=== PATIENT | male | born 1950 | race Caucasian/White ===

== ENCOUNTER 2017-04-23 19:42 | Inpatient (IN) | payer MEDICARE, BC ==
[~2017-04-23] VITALS: Ht 182.9 cm; Wt 62.7 kg
[2017-04-23] VITALS (65 sets, daily range): BP systolic 131; BP diastolic 55; PULSE 93; TEMP 97.8; O2SAT 82–100
[~2017-04-23 19:42] MED LIST: ASPIRIN 81M81 MG/TA2 PO; CASODEX 50MG TA50 MG PO; LUPRON5 MG/M2 IM; NORCO 325 MG-7.1 TAB PO; OSCAL 500 TAB500 MG PO; PRILOTC PO; VITAMIN D31000 I1 PO
[2017-04-23] MEDS ORDERED: ZOFRAN8 MG PO (20:38)
[2017-04-23 21:22] LABS: CALCIUM 6.7 mg/dL (8.4-10.2); MAGNESIUM 2.2 mg/dL (1.6-2.3); PHOSPHOROUS 7.4 mg/dL (2.5-4.5); POTASSIUM 4.9 mmol/L (3.4-5.0)
[2017-04-23 21:24] LABS: CREATININE, serum 6.59 mg/dL (0.66-1.25)
[2017-04-23 21:39] LABS: HEMATOCRIT 47.6 % (42.0-52.0); HEMOGLOBIN 15.5 g/dl (13.5-18.0); MEAN CELL VOLUME 83 fl (80.0-100.0); MEAN CORPUSCULAR HEMOGLOBIN 27 pg (27.0-31.0); MEAN CORPUSCULAR HGB CONC 33 g/dl (33.0-37.0); PLATELET COUNT 382 K/mm3 (130-400); RED BLOOD COUNT 5.74 M/mm3 (4.20-5.60); REDCELL DISTRIBUTION WIDTH-CV 15.3 % (11.5-14.5); WHITE BLOOD COUNT 7.5 K/mm3 (4.8-10.8)
[2017-04-23 21:47] LABS: ADD PATHOLOGY DIFF REVIEW NO
[2017-04-23 21:58] LABS: BAND 76 % (0-10); NEUTROPHILS 2 % (42.0-75.2); PLATELET ESTIMATE NORMAL (NORMAL); TOTAL CELLS COUNTED 100
[2017-04-24] VITALS (1028 sets, daily range): BP systolic 124–163; BP diastolic 75–100; PULSE 86–112; TEMP 97.6–98.8; O2SAT 48–100
[2017-04-24 02:05] LABS: PH 5 (5-8); URINE APPEARANCE Cloudy; URINE BACTERIA Rare /hpf; URINE BILIRUBIN Negative (NEGATIVE); URINE BLOOD 1+ (NEGATIVE); URINE COLOR Yellow; URINE GLUCOSE 1+ (NEGATIVE); URINE KETONE Negative (NEGATIVE); URINE UROBILINOGEN Negative (NEGATIVE); URINE WBC >50 /hpf
[2017-04-24 02:16] LABS: POTASSIUM 4.9 mmol/L (3.4-5.0)
[2017-04-24 02:20] LABS: CREATININE, serum 5.01 mg/dL (0.66-1.25)
[2017-04-24 02:21] LABS: CALCIUM 5.7 mg/dL (8.4-10.2)
[2017-04-24 05:28] LABS: HEMATOCRIT 43.7 % (42.0-52.0); HEMOGLOBIN 14.2 g/dl (13.5-18.0); MEAN CELL VOLUME 84 fl (80.0-100.0); MEAN CORPUSCULAR HEMOGLOBIN 27 pg (27.0-31.0); MEAN CORPUSCULAR HGB CONC 33 g/dl (33.0-37.0); MEAN PLATELET VOLUME 9.9 fl (7.4-10.4); PLATELET COUNT 328 K/mm3 (130-400); RED BLOOD COUNT 5.23 M/mm3 (4.20-5.60); REDCELL DISTRIBUTION WIDTH-CV 15.2 % (11.5-14.5); WHITE BLOOD COUNT 6.1 K/mm3 (4.8-10.8)
[2017-04-24 05:39] LABS: PHOSPHOROUS 5.4 mg/dL (2.5-4.5); POTASSIUM 4.5 mmol/L (3.4-5.0)
[2017-04-24 05:43] LABS: CALCIUM 5.8 mg/dL (8.4-10.2); CREATININE, serum 4.42 mg/dL (0.66-1.25)
[2017-04-24 11:17] LABS: ALBUMIN 3.5 gm/dL (3.5-5.0); BILIRUBIN,TOTAL 0.4 mg/dL (0.0-1.0); PHOSPHOROUS 5.9 mg/dL (2.5-4.5); TOTAL PROTEIN 7.2 gm/dL (6.4-8.2)
[2017-04-24 11:24] LABS: CALCIUM 5.6 mg/dL (8.4-10.2); CREATININE, serum 4.88 mg/dL (0.66-1.25)
[2017-04-25] VITALS (655 sets, daily range): BP systolic 101–146; BP diastolic 65–89; PULSE 85–91; TEMP 97.1–98.6; O2SAT 71–100
[2017-04-25 05:53] LABS: ADD PATHOLOGY DIFF REVIEW NO
[2017-04-25 05:59] LABS: HEMOGLOBIN 12.9 g/dl (13.5-18.0); MEAN CELL VOLUME 83 fl (80.0-100.0); MEAN CORPUSCULAR HEMOGLOBIN 27 pg (27.0-31.0); MEAN CORPUSCULAR HGB CONC 33 g/dl (33.0-37.0); MEAN PLATELET VOLUME 9.9 fl (7.4-10.4); PLATELET COUNT 307 K/mm3 (130-400); RED BLOOD COUNT 4.73 M/mm3 (4.20-5.60); REDCELL DISTRIBUTION WIDTH-CV 15.1 % (11.5-14.5); WHITE BLOOD COUNT 5.3 K/mm3 (4.8-10.8)
[2017-04-25 06:13] LABS: ADJUSTED CALCIUM 7.6 mg/dL (8.4-10.2); ALBUMIN 3.4 gm/dL (3.5-5.0); BAND 39 % (0-10); BASOPHIL 1 % (0-2); BILIRUBIN,TOTAL 0.4 mg/dL (0.0-1.0); CALCIUM 7.1 mg/dL (8.4-10.2); CREATININE, serum 1.47 mg/dL (0.66-1.25); EOSINOPHIL 3 % (0-4); MAGNESIUM 2.2 mg/dL (1.6-2.3); METAMYELOCYTE 1 % (0-0); MYELOCYTE 1 % (0-0); NEUTROPHILS 37 % (42.0-75.2); PHOSPHOROUS 2.7 mg/dL (2.5-4.5); PLATELET ESTIMATE NORMAL (NORMAL); POTASSIUM 3.4 mmol/L (3.4-5.0); TOTAL CELLS COUNTED 100
[2017-04-25 07:36] LABS: URINE PROTEIN:CREAT RATIO 0.79 (0.00-0.14)
[2017-04-25] MEDS ORDERED: ADVIL LIQUI-GE200 MG PO (16:40)
[2017-04-26] VITALS (7 sets, daily range): BP systolic 110–140; BP diastolic 56–77; PULSE 86–103; TEMP 97.7–98.2
[2017-04-26 07:17] LABS: ADD PATHOLOGY DIFF REVIEW NO
[2017-04-26 07:24] LABS: HEMATOCRIT 40.4 % (42.0-52.0); MEAN CELL VOLUME 83 fl (80.0-100.0); MEAN CORPUSCULAR HEMOGLOBIN 27 pg (27.0-31.0); MEAN CORPUSCULAR HGB CONC 32 g/dl (33.0-37.0); MEAN PLATELET VOLUME 10.1 fl (7.4-10.4); PLATELET COUNT 329 K/mm3 (130-400); RED BLOOD COUNT 4.88 M/mm3 (4.20-5.60); REDCELL DISTRIBUTION WIDTH-CV 15.3 % (11.5-14.5); WHITE BLOOD COUNT 5.6 K/mm3 (4.8-10.8)
[2017-04-26 07:34] LABS: ALBUMIN 3.3 gm/dL (3.5-5.0); CALCIUM 7.3 mg/dL (8.4-10.2); CREATININE, serum 0.95 mg/dL (0.66-1.25); PHOSPHOROUS 1.5 mg/dL (2.5-4.5); POTASSIUM 3.4 mmol/L (3.4-5.0)
[2017-04-26 08:53] LABS: BAND 33 % (0-10); METAMYELOCYTE 1 % (0-0); MYELOCYTE 5 % (0-0); NEUTROPHILS 27 % (42.0-75.2); PLATELET ESTIMATE INCREASED (NORMAL); TOTAL CELLS COUNTED 100
[2017-04-27 04:05] VITALS: BP 128/91; PULSE 88; TEMP 97.5
[2017-04-27 06:36] LABS: CALCIUM 7.9 mg/dL (8.4-10.2); CREATININE, serum 0.73 mg/dL (0.66-1.25); PHOSPHOROUS 1.8 mg/dL (2.5-4.5); POTASSIUM 4.1 mmol/L (3.4-5.0)
[2017-04-27 07:47] VITALS: BP 116/69; PULSE 88; TEMP 97.6
[2017-04-27 11:24] VITALS: BP 114/63; PULSE 107; TEMP 97.9
[2017-04-27 16:11] VITALS: BP 123/66; PULSE 90; TEMP 98.2
[2017-04-27 20:52] VITALS: BP 130/63; PULSE 106; TEMP 97.8
[2017-04-28] VITALS (7 sets, daily range): BP systolic 108–131; BP diastolic 62–78; PULSE 84–106; TEMP 98–98.8
[2017-04-28 07:40] LABS: MEAN CELL VOLUME 84 fl (80.0-100.0); MEAN CORPUSCULAR HEMOGLOBIN 27 pg (27.0-31.0); MEAN CORPUSCULAR HGB CONC 32 g/dl (33.0-37.0); MEAN PLATELET VOLUME 9.9 fl (7.4-10.4); PLATELET COUNT 358 K/mm3 (130-400); RED BLOOD COUNT 4.42 M/mm3 (4.20-5.60); REDCELL DISTRIBUTION WIDTH-CV 15.9 % (11.5-14.5); WHITE BLOOD COUNT 11.7 K/mm3 (4.8-10.8)
[2017-04-28 07:58] LABS: ADJUSTED CALCIUM 8.8 mg/dL (8.4-10.2); ALBUMIN 2.8 gm/dL (3.5-5.0); BILIRUBIN,TOTAL 0.3 mg/dL (0.0-1.0); CALCIUM 7.8 mg/dL (8.4-10.2); CREATININE, serum 0.68 mg/dL (0.66-1.25); POTASSIUM 3.5 mmol/L (3.4-5.0); TOTAL PROTEIN 6.1 gm/dL (6.4-8.2)
[2017-04-28 08:04] LABS: BAND 35 % (0-10); EOSINOPHIL 1 % (0-4); METAMYELOCYTE 2 % (0-0); MYELOCYTE 4 % (0-0); NEUTROPHILS 34 % (42.0-75.2); TOTAL CELLS COUNTED 100
[2017-04-28 08:05] LABS: PLATELET ESTIMATE NORMAL (NORMAL)
[2017-04-28 08:08] LABS: ADD PATHOLOGY DIFF REVIEW YES; POLYCHROMASIA 1+; TARGET CELLS 1+
[2017-04-28 09:09] LABS: PATHOLOGY DIFF REVIEW OK
[2017-04-29 04:30] VITALS: BP 125/68; PULSE 98; TEMP 98.2
[2017-04-29 07:00] LABS: MEAN CELL VOLUME 83 fl (80.0-100.0); MEAN CORPUSCULAR HGB CONC 32 g/dl (33.0-37.0); MEAN PLATELET VOLUME 10.1 fl (7.4-10.4); PLATELET COUNT 370 K/mm3 (130-400); RED BLOOD COUNT 4.14 M/mm3 (4.20-5.60); REDCELL DISTRIBUTION WIDTH-CV 16.2 % (11.5-14.5); WHITE BLOOD COUNT 14.5 K/mm3 (4.8-10.8)
[2017-04-29 07:01] LABS: ADD PATHOLOGY DIFF REVIEW NO; HEMATOCRIT 34.4 % (42.0-52.0); HEMOGLOBIN 11.1 g/dl (13.5-18.0); MEAN CORPUSCULAR HEMOGLOBIN 27 pg (27.0-31.0)
[2017-04-29 07:16] LABS: CALCIUM 7.3 mg/dL (8.4-10.2); CREATININE, serum 0.62 mg/dL (0.66-1.25); POTASSIUM 3.8 mmol/L (3.4-5.0)
[2017-04-29 07:36] VITALS: BP 127/65; PULSE 117; TEMP 98.4
[2017-04-29 08:15] LABS: BAND 13 % (0-10); EOSINOPHIL 1 % (0-4); METAMYELOCYTE 2 % (0-0); NEUTROPHILS 57 % (42.0-75.2); TOTAL CELLS COUNTED 100; TOXIC GRANULATION PRESENT
[2017-04-29 08:18] LABS: ANISOCYTOSIS 1+; TARGET CELLS 1+
[2017-04-29] MEDS ORDERED: ROCEPHIN 2GM VIAL21 IV (11:25)
[2017-04-29] MEDS ORDERED: FLAGYL500 MG PO (11:27)
[2017-04-29 11:51] VITALS: BP 125/64; PULSE 94; TEMP 98
[2017-04-29] MEDS ORDERED: HEPARIN 50500 U/5 ML IV (12:03)
[2017-04-29] MEDS ORDERED: NS INT FLUSH 1010 ML IV (12:06)
[2017-05-22] MEDS ORDERED: CORTEF 20MG TAB20 MG PO (10:53)
== END 2017-04-29 18:40 | disposition home or self-care (01) | DRG 871 ==
LOC: COL.ER 19:42 → ICU 21:33 → MEDICAL 21:33 → ICU 21:33 → MEDICAL 04-25 15:10
PROVIDERS: Emergency Medicine; Internal Medicine; Internal Medicine Cardiovascular Disease; Internal Medicine Nephrology; Nurse Practitioner Family
PROC: 02HV33Z Insertion of Infusion Device into Superior Vena Cava, Percutaneous Approach (ICD-10-PCS; principal; 2017-04-28)
DX: A02.1 Salmonella sepsis (principal); E43 Unspecified severe protein-calorie malnutrition; A04.7 Enterocolitis due to Clostridium difficile; N17.9 Acute kidney failure, unspecified; E87.2 Acidosis; Z68.1 Body mass index [BMI] 19.9 or less, adult; C79.51 Secondary malignant neoplasm of bone; E87.1 Hypo-osmolality and hyponatremia; A02.0 Salmonella enteritis; C61 Malignant neoplasm of prostate; Z85.01 Personal history of malignant neoplasm of esophagus; Z87.891 Personal history of nicotine dependence; E83.51 Hypocalcemia
CPT/HCPCS: 99223-AI; 99233-AI; 99239; C1751; C9113; G0378; J0610; J0696; J1170; J1644; J1650; J2405; J2543; J2765; J7030; J7050

== ENCOUNTER 2017-05-27 09:00 | Outpatient (RCR) | payer MEDICARE, BC ==
[2017-04-30 09:46] VITALS: BP 112/60; PULSE 98; TEMP 98.1
[2017-05-01 09:21] VITALS: BP 113/58; PULSE 99; TEMP 98.2
[2017-05-01 09:29] LABS: MEAN CELL VOLUME 82 fl (80.0-100.0); MEAN CORPUSCULAR HGB CONC 33 g/dl (33.0-37.0); MEAN PLATELET VOLUME 9.8 fl (7.4-10.4); PLATELET COUNT 398 K/mm3 (130-400); RED BLOOD COUNT 4.05 M/mm3 (4.20-5.60); REDCELL DISTRIBUTION WIDTH-CV 16.3 % (11.5-14.5); WHITE BLOOD COUNT 14.1 K/mm3 (4.8-10.8)
[2017-05-01 09:30] LABS: HEMATOCRIT 33.2 % (42.0-52.0); MEAN CORPUSCULAR HEMOGLOBIN 27 pg (27.0-31.0)
[2017-05-01 09:41] LABS: ADJUSTED CALCIUM 8.4 mg/dL (8.4-10.2); ALBUMIN 2.9 gm/dL (3.5-5.0); BILIRUBIN,TOTAL 0.4 mg/dL (0.0-1.0); CALCIUM 7.5 mg/dL (8.4-10.2); CREATININE, serum 0.57 mg/dL (0.66-1.25); POTASSIUM 3.8 mmol/L (3.4-5.0); TOTAL PROTEIN 6.2 gm/dL (6.4-8.2)
[2017-05-02 09:13] VITALS: BP 116/66; PULSE 96; TEMP 97.6
[2017-05-03 08:44] VITALS: BP 125/70; PULSE 91; TEMP 98.3
[2017-05-04 08:24] VITALS: BP 115/67; PULSE 96; TEMP 98.1
[2017-05-06 09:26] VITALS: BP 104/61; PULSE 96; TEMP 98.4
[2017-05-07 09:00] VITALS: BP 110/70; PULSE 80; TEMP 98
[2017-05-08 09:16] LABS: MEAN CELL VOLUME 84 fl (80.0-100.0); MEAN CORPUSCULAR HGB CONC 33 g/dl (33.0-37.0); MEAN PLATELET VOLUME 9.3 fl (7.4-10.4); PLATELET COUNT 623 K/mm3 (130-400); RED BLOOD COUNT 4.06 M/mm3 (4.20-5.60); REDCELL DISTRIBUTION WIDTH-CV 16.6 % (11.5-14.5); WHITE BLOOD COUNT 6.9 K/mm3 (4.8-10.8)
[2017-05-08 09:18] LABS: HEMATOCRIT 34.2 % (42.0-52.0); HEMOGLOBIN 11.1 g/dl (13.5-18.0); MEAN CORPUSCULAR HEMOGLOBIN 27 pg (27.0-31.0)
[2017-05-08 09:33] LABS: ADJUSTED CALCIUM 8.5 mg/dL (8.4-10.2); ALBUMIN 3.2 gm/dL (3.5-5.0); BILIRUBIN,TOTAL 0.4 mg/dL (0.0-1.0); CALCIUM 7.9 mg/dL (8.4-10.2); CREATININE, serum 0.61 mg/dL (0.66-1.25); POTASSIUM 4.2 mmol/L (3.4-5.0); TOTAL PROTEIN 6.9 gm/dL (6.4-8.2)
[2017-05-08 09:48] VITALS: BP 119/71; PULSE 87; TEMP 98.4
[2017-05-09 09:28] VITALS: BP 114/60; PULSE 93; TEMP 97.8
[2017-05-10 08:24] VITALS: BP 102/55; BP 111/62; PULSE 71; PULSE 95; TEMP 97.9; TEMP 98
[2017-05-11 08:14] VITALS: BP 131/69; PULSE 89; TEMP 97.8
[2017-05-12 07:59] VITALS: BP 125/65; PULSE 93; TEMP 97.4
[2017-05-13 09:11] VITALS: BP 116/67; PULSE 88; TEMP 98.1
[2017-05-14 08:57] VITALS: BP 127/65; PULSE 87; TEMP 98.1
[2017-05-15 09:30] VITALS: BP 121/53; PULSE 94; TEMP 98.4
[2017-05-15 09:33] LABS: MEAN CELL VOLUME 84 fl (80.0-100.0); MEAN CORPUSCULAR HGB CONC 32 g/dl (33.0-37.0); MEAN PLATELET VOLUME 9.1 fl (7.4-10.4); PLATELET COUNT 584 K/mm3 (130-400); REDCELL DISTRIBUTION WIDTH-CV 16.6 % (11.5-14.5); WHITE BLOOD COUNT 6.3 K/mm3 (4.8-10.8)
[2017-05-15 09:34] LABS: HEMATOCRIT 34.5 % (42.0-52.0); MEAN CORPUSCULAR HEMOGLOBIN 27 pg (27.0-31.0)
[2017-05-15 09:55] LABS: ADJUSTED CALCIUM 8.5 mg/dL (8.4-10.2); ALBUMIN 3.4 gm/dL (3.5-5.0); BILIRUBIN,TOTAL 0.5 mg/dL (0.0-1.0); CREATININE, serum 0.63 mg/dL (0.66-1.25); POTASSIUM 4.5 mmol/L (3.4-5.0); TOTAL PROTEIN 7.1 gm/dL (6.4-8.2)
[2017-05-16 09:39] VITALS: BP 128/79; PULSE 84; TEMP 97.9
[2017-05-17 08:32] VITALS: BP 132/63; PULSE 65; TEMP 98.5
[2017-05-18 08:18] VITALS: BP 135/72; PULSE 103; TEMP 97.9
[2017-05-19 09:31] VITALS: BP 129/66; PULSE 94; TEMP 98.1
[2017-05-20 09:00] VITALS: BP 111/63; PULSE 100; TEMP 97.8
[2017-05-21 09:00] VITALS: BP 131/66; PULSE 94; TEMP 98.1
[2017-05-22 09:16] VITALS: BP 119/65; PULSE 101; TEMP 98
[2017-05-22 10:00] LABS: MEAN CELL VOLUME 85 fl (80.0-100.0); MEAN CORPUSCULAR HGB CONC 32 g/dl (33.0-37.0); MEAN PLATELET VOLUME 9.3 fl (7.4-10.4); PLATELET COUNT 387 K/mm3 (130-400); RED BLOOD COUNT 4.16 M/mm3 (4.20-5.60); REDCELL DISTRIBUTION WIDTH-CV 16.6 % (11.5-14.5); WHITE BLOOD COUNT 6.7 K/mm3 (4.8-10.8)
[2017-05-22 10:05] LABS: HEMATOCRIT 35.5 % (42.0-52.0); HEMOGLOBIN 11.4 g/dl (13.5-18.0); MEAN CORPUSCULAR HEMOGLOBIN 27 pg (27.0-31.0)
[2017-05-22 10:18] LABS: ADJUSTED CALCIUM 8.2 mg/dL (8.4-10.2); ALBUMIN 3.4 gm/dL (3.5-5.0); BILIRUBIN,TOTAL 0.4 mg/dL (0.0-1.0); CALCIUM 7.7 mg/dL (8.4-10.2); CREATININE, serum 0.59 mg/dL (0.66-1.25); POTASSIUM 4.2 mmol/L (3.4-5.0); TOTAL PROTEIN 7.2 gm/dL (6.4-8.2)
[2017-05-23 09:17] VITALS: BP 116/67; PULSE 93; TEMP 98.4
[2017-05-24 08:36] VITALS: BP 127/67; PULSE 98; TEMP 97.5
[2017-05-25 08:36] VITALS: BP 126/69; PULSE 95; TEMP 98
[2017-05-26 08:53] VITALS: BP 108/56; PULSE 105; TEMP 97.9
[~2017-05-27] VITALS: Ht 182.9 cm; Wt 71.0 kg
[~2017-05-27 09:00] MED LIST changes: +ADVIL LIQUI-GE200 MG PO; +CORTEF 20MG TAB20 MG PO; +FLAGYL500 MG PO; +HEPARIN 50500 U/5 ML IV; +NS INT FLUSH 1010 ML IV; +ROCEPHIN 2GM VIAL21 IV; +ZOFRAN8 MG PO
[2017-05-27 09:10] VITALS: BP 125/69; PULSE 98; TEMP 98.3
== END 2017-05-28 12:27 | disposition home or self-care (01) ==
LOC: EUO 09:00
PROVIDERS: Family Medicine; Internal Medicine
DX: Z45.2 Encounter for adjustment and management of vascular access device (principal); R78.81 Bacteremia; A02.1 Salmonella sepsis; C61 Malignant neoplasm of prostate
CPT/HCPCS: G0103; J0696; J1644

== ENCOUNTER → 2018-01-19 | Outpatient (CLI) | payer MEDICARE, BC | LOC: COL.RAD 01-12 09:49 | DX: C61 Malignant neoplasm of prostate (principal); C79.51 Secondary malignant neoplasm of bone; N28.89 Other specified disorders of kidney and ureter | CPT/HCPCS: A9503 ==

== ENCOUNTER 2018-04-09 16:54 | Inpatient (IN) | payer MEDICARE, BC ==
[~2018-04-09] VITALS: Ht 182.9 cm; Wt 72.4 kg
[2018-04-09] MEDS ORDERED: LASIX 20MG TABL20 MG PO (17:17)
[2018-04-09] MEDS ORDERED: DECADRON 4MG TAB4 MG PO (17:18)
[2018-04-09] MEDS ORDERED: PREDNISONE20 MG PO (17:18)
[2018-04-09] MEDS ORDERED: GLUCOSAMINE 1000 PO (17:19)
[2018-04-09 18:14] LABS: MEAN CELL VOLUME 110 fl (80.0-100.0); MEAN CORPUSCULAR HGB CONC 30 g/dl (33.0-37.0); MEAN PLATELET VOLUME 11.7 fl (7.4-10.4); PLATELET COUNT 65 K/mm3 (130-400); RED BLOOD COUNT 2.43 M/mm3 (4.20-5.60)
[2018-04-09 18:22] LABS: HEMATOCRIT 26.6 % (42.0-52.0); MEAN CORPUSCULAR HEMOGLOBIN 33 pg (27.0-31.0)
[2018-04-09 18:36] LABS: ARTERIAL BLD GAS O2 SATURATION 97.1 % (92-100); ARTERIAL BLD GAS TCO2 CT 9.7; ARTERIAL BLOOD GAS BASE EXCESS -17.2 (-2-2); ARTERIAL BLOOD GAS pH 7.21 (7.35-7.45)
[2018-04-09 18:37] LABS: ARTERIAL BLOOD GAS PCO2 23.1 mmHg (35-45); ARTERIAL BLOOD GAS PO2 121.3 mmHg (80-100)
[2018-04-09 18:39] LABS: ALBUMIN 3.3 gm/dL (3.5-5.0); BILIRUBIN,TOTAL 3.4 mg/dL (0.0-1.0); CREATININE, serum 2.06 mg/dL (0.66-1.25); MAGNESIUM 2.4 mg/dL (1.6-2.3); PHOSPHOROUS 5.7 mg/dL (2.5-4.5); TOTAL PROTEIN 6.1 gm/dL (6.4-8.2)
[2018-04-09 18:41] LABS: BAND 19 % (0-10); BASOPHIL 1 % (0-2); LYMPHOCYTE 2 % (20.0-51.0); NEUTROPHILS 78 % (42.0-75.2)
[2018-04-09 18:42] LABS: HYPOCHROMIA 1+; PLATELET ESTIMATE NORMAL (NORMAL); POLYCHROMASIA 1+
[2018-04-09 18:46] LABS: POTASSIUM 6.4 mmol/L (3.4-5.0)
[2018-04-09 18:52] LABS: C-REACTIVE PROTEIN 14.8 mg/dL (0.0-0.9); TROPONIN-I 0.161 ng/mL (0.000-0.034)
[2018-04-09 20:23] LABS: PROTHROMBIN TIME 34.5 SECONDS (9.7-12.8)
[2018-04-09 21:45] LABS: ARTERIAL BLD GAS O2 SATURATION 93.5 % (92-100); ARTERIAL BLD GAS TCO2 CT 12.9; ARTERIAL BLOOD GAS BASE EXCESS -13.8 (-2-2); ARTERIAL BLOOD GAS HCO3 12.1 meq/L (22-26); ARTERIAL BLOOD GAS PO2 87.5 mmHg (80-100); ARTERIAL BLOOD GAS pH 7.25 (7.35-7.45)
[2018-04-09 23:06] VITALS: BP 93/61; PULSE 103; TEMP 97
[2018-04-10] VITALS (895 sets, daily range): BP systolic 91–98; BP diastolic 58–68; PULSE 88–97; TEMP 97–98; O2SAT 78–100
[2018-04-10 00:21] LABS: CREATININE, serum 2.11 mg/dL (0.66-1.25)
[2018-04-10 00:24] LABS: CALCIUM 5.7 mg/dL (8.4-10.2); POTASSIUM 6.1 mmol/L (3.4-5.0)
[2018-04-10 00:38] LABS: TROPONIN-I 0.149 ng/mL (0.000-0.034)
[2018-04-10 06:17] LABS: MEAN CORPUSCULAR HGB CONC 31 g/dl (33.0-37.0); PLATELET COUNT 56 K/mm3 (130-400); RED BLOOD COUNT 2.41 M/mm3 (4.20-5.60); REDCELL DISTRIBUTION WIDTH-CV 22.7 % (11.5-14.5)
[2018-04-10 06:21] LABS: HEMATOCRIT 25.3 % (42.0-52.0); HEMOGLOBIN 7.8 g/dl (13.5-18.0); MEAN CORPUSCULAR HEMOGLOBIN 32 pg (27.0-31.0)
[2018-04-10 06:22] LABS: MEAN CELL VOLUME 105 fl (80.0-100.0)
[2018-04-10 06:30] LABS: BILIRUBIN,TOTAL 2.8 mg/dL (0.0-1.0); CREATININE, serum 1.97 mg/dL (0.66-1.25); POTASSIUM 5.5 mmol/L (3.4-5.0); TOTAL PROTEIN 5.8 gm/dL (6.4-8.2)
[2018-04-10 06:42] LABS: CALCIUM 5.2 mg/dL (8.4-10.2)
[2018-04-10 06:43] LABS: BAND 22 % (0-10); LYMPHOCYTE 3 % (20.0-51.0); NEUTROPHILS 71 % (42.0-75.2); PLATELET ESTIMATE DECREASED (NORMAL)
[2018-04-10 06:44] LABS: ANISOCYTOSIS 3+; HYPOCHROMIA 3+; POLYCHROMASIA 1+; TROPONIN-I 0.123 ng/mL (0.000-0.034)
[2018-04-10 06:45] LABS: TEAR DROP CELLS 1+
[2018-04-10 11:06] LABS: ARTERIAL BLD GAS O2 SATURATION 92.4 % (92-100); ARTERIAL BLOOD GAS BASE EXCESS -6.2 (-2-2); ARTERIAL BLOOD GAS HCO3 19.8 meq/L (22-26); ARTERIAL BLOOD GAS PCO2 41.2 mmHg (35-45); ARTERIAL BLOOD GAS PO2 80.4 mmHg (80-100)
[2018-04-10 12:12] LABS: COLLECTION METHOD CLEAN CATCH
[2018-04-10 12:43] LABS: MUCOUS Present /lpf; PH 5 (5-8); SQUAMOUS EPITHELIAL None Seen /hpf; URINE APPEARANCE Cloudy; URINE BACTERIA Rare /hpf; URINE BILIRUBIN Negative (NEGATIVE); URINE BLOOD 2+ (NEGATIVE); URINE COLOR Amber; URINE GLUCOSE Negative (NEGATIVE); URINE KETONE Negative (NEGATIVE); URINE LEUKOCYTE ESTERASE 2+ (NEGATIVE); URINE NITRATE Negative (NEGATIVE); URINE PROTEIN(semi-quant) 2+ (NEGATIVE); URINE RBC >50 /hpf; URINE UROBILINOGEN >=4.0 mg/dL (NEGATIVE); URINE WBC >50 /hpf
[2018-04-11] VITALS (1374 sets, daily range): BP systolic 87–110; BP diastolic 31–76; PULSE 86–99; TEMP 97.7–98.7; O2SAT 76–100
[2018-04-11 01:01] LABS: HEMOGLOBIN 7.1 g/dl (13.5-18.0)
[2018-04-11 01:09] LABS: CREATININE, serum 1.27 mg/dL (0.66-1.25); POTASSIUM 4.5 mmol/L (3.4-5.0)
[2018-04-11 01:23] LABS: TROPONIN-I 0.074 ng/mL (0.000-0.034)
[2018-04-11 05:26] LABS: ARTERIAL BLD GAS O2 SATURATION 93.1 % (92-100); ARTERIAL BLD GAS TCO2 CT 25.5; ARTERIAL BLOOD GAS HCO3 24.2 meq/L (22-26); ARTERIAL BLOOD GAS PCO2 42.2 mmHg (35-45); ARTERIAL BLOOD GAS PO2 75.9 mmHg (80-100); ARTERIAL BLOOD GAS pH 7.38 (7.35-7.45)
[2018-04-11 07:31] LABS: MEAN CELL VOLUME 103 fl (80.0-100.0); MEAN CORPUSCULAR HGB CONC 31 g/dl (33.0-37.0); MEAN PLATELET VOLUME 12.6 fl (7.4-10.4); RED BLOOD COUNT 2.66 M/mm3 (4.20-5.60); REDCELL DISTRIBUTION WIDTH-CV 22.9 % (11.5-14.5)
[2018-04-11 07:32] LABS: HEMATOCRIT 27.3 % (42.0-52.0); HEMOGLOBIN 8.4 g/dl (13.5-18.0); MEAN CORPUSCULAR HEMOGLOBIN 32 pg (27.0-31.0)
[2018-04-11 07:33] LABS: PLATELET COUNT 46 K/mm3 (130-400)
[2018-04-11 07:39] LABS: INR 2.2 (0.8-3.0); PROTHROMBIN TIME 24.5 SECONDS (9.7-12.8)
[2018-04-11 07:43] LABS: ALBUMIN 2.6 gm/dL (3.5-5.0); BILIRUBIN,TOTAL 2.5 mg/dL (0.0-1.0); CALCIUM 6.2 mg/dL (8.4-10.2); CREATININE, serum 1.12 mg/dL (0.66-1.25); POTASSIUM 4.6 mmol/L (3.4-5.0); TOTAL PROTEIN 5.3 gm/dL (6.4-8.2)
[2018-04-11 09:18] LABS: ANISOCYTOSIS 4+; BAND 11 % (0-10); LYMPHOCYTE 4 % (20.0-51.0); NEUTROPHILS 82 % (42.0-75.2); NUCLEATED RED BLOOD CELL 2 (0-6); PLATELET ESTIMATE DECREASED (NORMAL)
[2018-04-11 09:19] LABS: HYPOCHROMIA 1+
[2018-04-12] VITALS (826 sets, daily range): BP systolic 105–121; BP diastolic 69–81; PULSE 81–105; TEMP 98.1–98.5; O2SAT 84–100
[2018-04-12 05:39] LABS: ARTERIAL BLD GAS O2 SATURATION 83.9 % (92-100); ARTERIAL BLOOD GAS PCO2 31.5 mmHg (35-45); ARTERIAL BLOOD GAS PO2 52.5 mmHg (80-100); ARTERIAL BLOOD GAS pH 7.48 (7.35-7.45)
[2018-04-12 05:41] LABS: MEAN CELL VOLUME 101 fl (80.0-100.0); MEAN CORPUSCULAR HGB CONC 31 g/dl (33.0-37.0); RED BLOOD COUNT 2.81 M/mm3 (4.20-5.60)
[2018-04-12 05:52] LABS: ALBUMIN 2.6 gm/dL (3.5-5.0); BILIRUBIN,TOTAL 2.1 mg/dL (0.0-1.0); CREATININE, serum 0.78 mg/dL (0.66-1.25); POTASSIUM 4.2 mmol/L (3.4-5.0); TOTAL PROTEIN 5.4 gm/dL (6.4-8.2)
[2018-04-12 06:01] LABS: HEMATOCRIT 28.3 % (42.0-52.0); HEMOGLOBIN 8.9 g/dl (13.5-18.0); INR 1.6 (0.8-3.0); MEAN CORPUSCULAR HEMOGLOBIN 32 pg (27.0-31.0); PLATELET COUNT 46 K/mm3 (130-400); PROTHROMBIN TIME 17.8 SECONDS (9.7-12.8)
[2018-04-12 06:03] LABS: CALCIUM 5.6 mg/dL (8.4-10.2)
[2018-04-12 06:04] LABS: PARTIAL THROMBOPLASTIN TIME 29.5 SECONDS (26.0-37.0)
[2018-04-12 09:41] LABS: ANISOCYTOSIS 4+; BAND 9 % (0-10); LYMPHOCYTE 9 % (20.0-51.0); NEUTROPHILS 79 % (42.0-75.2); NUCLEATED RED BLOOD CELL 12 (0-6); PLATELET ESTIMATE DECREASED (NORMAL)
[2018-04-12 09:42] LABS: TARGET CELLS 1+
[2018-04-13] VITALS (79 sets, daily range): BP systolic 104–131; BP diastolic 64–87; PULSE 95–109; TEMP 97.4–98.8; O2SAT 93–100
[2018-04-13 05:04] LABS: ARTERIAL BLD GAS O2 SATURATION 86.9 % (92-100); ARTERIAL BLD GAS TCO2 CT 26.6; ARTERIAL BLOOD GAS BASE EXCESS 1.9 (-2-2); ARTERIAL BLOOD GAS HCO3 25.5 meq/L (22-26); ARTERIAL BLOOD GAS PCO2 35.9 mmHg (35-45); ARTERIAL BLOOD GAS PO2 56.1 mmHg (80-100); ARTERIAL BLOOD GAS pH 7.47 (7.35-7.45)
[2018-04-13 05:15] LABS: MEAN CELL VOLUME 105 fl (80.0-100.0); MEAN CORPUSCULAR HGB CONC 31 g/dl (33.0-37.0); MEAN PLATELET VOLUME 12.8 fl (7.4-10.4); PLATELET COUNT 53 K/mm3 (130-400); RED BLOOD COUNT 2.85 M/mm3 (4.20-5.60); REDCELL DISTRIBUTION WIDTH-CV 24.8 % (11.5-14.5)
[2018-04-13 05:16] LABS: HEMATOCRIT 29.8 % (42.0-52.0); HEMOGLOBIN 9.2 g/dl (13.5-18.0); MEAN CORPUSCULAR HEMOGLOBIN 32 pg (27.0-31.0)
[2018-04-13 05:21] LABS: INR 1.4 (0.8-3.0); PROTHROMBIN TIME 16.1 SECONDS (9.7-12.8)
[2018-04-13 05:25] LABS: ALBUMIN 2.6 gm/dL (3.5-5.0); BILIRUBIN,TOTAL 1.7 mg/dL (0.0-1.0); CREATININE, serum 0.55 mg/dL (0.66-1.25); POTASSIUM 3.7 mmol/L (3.4-5.0); TOTAL PROTEIN 5.4 gm/dL (6.4-8.2)
[2018-04-13 05:27] LABS: CALCIUM 5.6 mg/dL (8.4-10.2)
[2018-04-13 05:41] LABS: BAND 4 % (0-10); LYMPHOCYTE 11 % (20.0-51.0); NEUTROPHILS 84 % (42.0-75.2); NUCLEATED RED BLOOD CELL 11 (0-6)
[2018-04-13 05:42] LABS: ANISOCYTOSIS 3+
[2018-04-13 05:43] LABS: POIKILOCYTOSIS 2+; POLYCHROMASIA 2+; TARGET CELLS 1+
[2018-04-13 05:44] LABS: PLATELET ESTIMATE DECREASED (NORMAL)
[2018-04-13 05:46] LABS: HYPOCHROMIA 3+; MICROCYTOSIS 1+
[2018-04-13 06:41] LABS: CORRECTED WBC 11.9 K/mm3
[2018-04-13 10:17] LABS: PLEURAL FLUID APPEARANCE CLOUDY; PLEURAL FLUID COLOR YELLOW
[2018-04-13 10:26] LABS: PLEURAL FLUID RBC 1000 /mm3 (0-0); PLEURAL FLUID WBC 889 /mm3
[2018-04-13 10:41] LABS: GLUCOSE,PLEURAL FLUID 114 mg/dL
[2018-04-13 10:43] LABS: TOTAL PROTEIN,PLEURAL FLUID < 2.0 gm/dL
[2018-04-13 13:46] LABS: HEPATITIS B SURFACE ANTIGEN Negative (()); HEPATITIS C VIRUS ANTIBODY Negative (())
[2018-04-14 04:13] VITALS: BP 112/67; PULSE 106; TEMP 98.4
[2018-04-14 07:01] LABS: CREATININE, serum 0.61 mg/dL (0.66-1.25); POTASSIUM 3.7 mmol/L (3.4-5.0)
[2018-04-14 07:04] LABS: CALCIUM 5.7 mg/dL (8.4-10.2); MEAN CELL VOLUME 105 fl (80.0-100.0); MEAN CORPUSCULAR HGB CONC 30 g/dl (33.0-37.0); PLATELET COUNT 54 K/mm3 (130-400); RED BLOOD COUNT 2.94 M/mm3 (4.20-5.60); REDCELL DISTRIBUTION WIDTH-CV 24.6 % (11.5-14.5)
[2018-04-14 07:05] LABS: HEMATOCRIT 30.8 % (42.0-52.0); HEMOGLOBIN 9.3 g/dl (13.5-18.0); MEAN CORPUSCULAR HEMOGLOBIN 32 pg (27.0-31.0)
[2018-04-14 07:34] VITALS: BP 110/69; PULSE 104; TEMP 98
[2018-04-14 10:08] LABS: BAND 5 % (0-10); LYMPHOCYTE 17 % (20.0-51.0); NEUTROPHILS 75 % (42.0-75.2)
[2018-04-14 10:09] LABS: ANISOCYTOSIS 4+; PLATELET ESTIMATE DECREASED (NORMAL)
[2018-04-14 10:34] VITALS: BP 111/68; PULSE 108; TEMP 98
[2018-04-14 10:57] LABS: GLUCOSE,PLEURAL FLUID 118 mg/dL; TOTAL PROTEIN,PLEURAL FLUID < 2.0 gm/dL
[2018-04-14 11:02] LABS: PLEURAL FLUID RBC 0 /mm3 (0-0); PLEURAL FLUID WBC 159 /mm3
[2018-04-14 11:05] LABS: PLEURAL FLUID APPEARANCE CLEAR; PLEURAL FLUID COLOR YELLOW
[2018-04-14 13:18] VITALS: BP 109/63; PULSE 114; TEMP 98.3
[2018-04-14 16:59] VITALS: BP 129/86; PULSE 108; TEMP 99
[2018-04-14 19:28] VITALS: BP 107/64; PULSE 115; TEMP 97.9
[2018-04-15] VITALS (11 sets, daily range): BP systolic 93–115; BP diastolic 52–73; PULSE 57–117; TEMP 97.3–98.8
[2018-04-15 06:35] LABS: MEAN CELL VOLUME 104 fl (80.0-100.0); MEAN CORPUSCULAR HGB CONC 31 g/dl (33.0-37.0); MEAN PLATELET VOLUME 12.9 fl (7.4-10.4); PLATELET COUNT 62 K/mm3 (130-400); RED BLOOD COUNT 2.98 M/mm3 (4.20-5.60); REDCELL DISTRIBUTION WIDTH-CV 24.1 % (11.5-14.5)
[2018-04-15 06:41] LABS: HEMATOCRIT 30.9 % (42.0-52.0); HEMOGLOBIN 9.5 g/dl (13.5-18.0); MEAN CORPUSCULAR HEMOGLOBIN 32 pg (27.0-31.0)
[2018-04-15 06:48] LABS: CREATININE, serum 0.59 mg/dL (0.66-1.25); POTASSIUM 3.2 mmol/L (3.4-5.0)
[2018-04-15 06:49] LABS: CALCIUM 5.6 mg/dL (8.4-10.2)
[2018-04-15 08:00] LABS: BAND 6 % (0-10); EOSINOPHIL 1 % (0-4); LYMPHOCYTE 14 % (20.0-51.0); METAMYELOCYTE 1 % (0-0); NEUTROPHILS 74 % (42.0-75.2); NUCLEATED RED BLOOD CELL 4 (0-6)
[2018-04-15 08:01] LABS: PLATELET ESTIMATE DECREASED (NORMAL); POLYCHROMASIA 1+
[2018-04-15 08:02] LABS: ANISOCYTOSIS 1+; HYPOCHROMIA 1+
[2018-04-15 23:21] LABS: FOLATE (FOLIC ACID) 6.8 ng/mL (7.0-31.4)
[2018-04-16 03:29] VITALS: BP 98/63; PULSE 114; TEMP 98.4
[2018-04-16 06:45] LABS: MEAN CELL VOLUME 106 fl (80.0-100.0); MEAN CORPUSCULAR HGB CONC 30 g/dl (33.0-37.0); MEAN PLATELET VOLUME 12.9 fl (7.4-10.4); PLATELET COUNT 80 K/mm3 (130-400); RED BLOOD COUNT 3.06 M/mm3 (4.20-5.60); REDCELL DISTRIBUTION WIDTH-CV 23.8 % (11.5-14.5)
[2018-04-16 06:53] LABS: HEMATOCRIT 32.4 % (42.0-52.0); HEMOGLOBIN 9.7 g/dl (13.5-18.0); MEAN CORPUSCULAR HEMOGLOBIN 32 pg (27.0-31.0)
[2018-04-16 06:59] LABS: ALBUMIN 2.3 gm/dL (3.5-5.0); BILIRUBIN,TOTAL 0.9 mg/dL (0.0-1.0); CREATININE, serum 0.55 mg/dL (0.66-1.25); MAGNESIUM 1.6 mg/dL (1.6-2.3); POTASSIUM 3.5 mmol/L (3.4-5.0); TOTAL PROTEIN 4.6 gm/dL (6.4-8.2)
[2018-04-16 07:03] LABS: CALCIUM 5.4 mg/dL (8.4-10.2)
[2018-04-16 07:52] LABS: BAND 6 % (0-10); EOSINOPHIL 1 % (0-4); LYMPHOCYTE 14 % (20.0-51.0); NEUTROPHILS 75 % (42.0-75.2); NUCLEATED RED BLOOD CELL 2 (0-6)
[2018-04-16 07:53] LABS: POLYCHROMASIA 1+
[2018-04-16 07:54] LABS: ANISOCYTOSIS 1+
[2018-04-16 07:55] LABS: HYPOCHROMIA 1+
[2018-04-16 08:12] VITALS: BP 106/59; PULSE 53; TEMP 97.8
[2018-04-16 12:00] VITALS: BP 110/65; PULSE 105; TEMP 98.2
[2018-04-16 16:26] VITALS: BP 99/53; PULSE 115; TEMP 98.1
[2018-04-16 19:57] VITALS: BP 95/56; PULSE 57; TEMP 98.4
[2018-04-16 23:29] VITALS: BP 104/58; PULSE 109; TEMP 98.3
[2018-04-17 03:47] VITALS: BP 91/51; PULSE 108; TEMP 98.2
[2018-04-17 06:28] LABS: MEAN CELL VOLUME 105 fl (80.0-100.0); MEAN CORPUSCULAR HGB CONC 30 g/dl (33.0-37.0); MEAN PLATELET VOLUME 13.1 fl (7.4-10.4); PLATELET COUNT 89 K/mm3 (130-400); RED BLOOD COUNT 2.96 M/mm3 (4.20-5.60)
[2018-04-17 06:32] LABS: HEMATOCRIT 31.2 % (42.0-52.0); HEMOGLOBIN 9.4 g/dl (13.5-18.0); MEAN CORPUSCULAR HEMOGLOBIN 32 pg (27.0-31.0)
[2018-04-17 06:53] LABS: CREATININE, serum 0.44 mg/dL (0.66-1.25); MAGNESIUM 1.5 mg/dL (1.6-2.3); POTASSIUM 4.1 mmol/L (3.4-5.0)
[2018-04-17 06:55] LABS: CALCIUM 5.2 mg/dL (8.4-10.2)
[2018-04-17 07:26] VITALS: BP 101/64; PULSE 104; TEMP 98.2
[2018-04-17 07:50] LABS: PHOSPHOROUS 2.9 mg/dL (2.5-4.5)
[2018-04-17 10:47] LABS: BAND 3 % (0-10); EOSINOPHIL 2 % (0-4); LYMPHOCYTE 10 % (20.0-51.0); METAMYELOCYTE 1 % (0-0); NEUTROPHILS 75 % (42.0-75.2); PLATELET ESTIMATE DECREASED (NORMAL)
[2018-04-17 10:48] LABS: ANISOCYTOSIS 1+; HYPOCHROMIA 1+; TOXIC GRANULATION PRESENT
[2018-04-17 11:44] VITALS: BP 106/60; PULSE 107; TEMP 98.5
[2018-04-17 16:12] VITALS: BP 99/58; PULSE 113; TEMP 98.1
[2018-04-17 19:40] VITALS: BP 106/58; PULSE 114; TEMP 98.1
[2018-04-17 22:45] VITALS: BP 96/53; PULSE 80; TEMP 98.7
[2018-04-18] VITALS (7 sets, daily range): BP systolic 87–119; BP diastolic 47–78; PULSE 72–116; TEMP 98.1–100
[2018-04-18 06:55] LABS: MEAN CELL VOLUME 104 fl (80.0-100.0); MEAN CORPUSCULAR HGB CONC 31 g/dl (33.0-37.0); MEAN PLATELET VOLUME 12.4 fl (7.4-10.4); PLATELET COUNT 87 K/mm3 (130-400); RED BLOOD COUNT 2.77 M/mm3 (4.20-5.60); REDCELL DISTRIBUTION WIDTH-CV 22.3 % (11.5-14.5)
[2018-04-18 07:17] LABS: ALBUMIN 2.8 gm/dL (3.5-5.0); BILIRUBIN,TOTAL 0.8 mg/dL (0.0-1.0); CREATININE, serum 0.41 mg/dL (0.66-1.25); POTASSIUM 3.7 mmol/L (3.4-5.0); TOTAL PROTEIN 5.2 gm/dL (6.4-8.2)
[2018-04-18 07:24] LABS: HEMATOCRIT 28.7 % (42.0-52.0); HEMOGLOBIN 8.8 g/dl (13.5-18.0); MEAN CORPUSCULAR HEMOGLOBIN 32 pg (27.0-31.0)
[2018-04-18 07:47] LABS: CALCIUM 5.4 mg/dL (8.4-10.2)
[2018-04-18 08:16] LABS: BAND 5 % (0-10); EOSINOPHIL 2 % (0-4); LYMPHOCYTE 17 % (20.0-51.0); NEUTROPHILS 75 % (42.0-75.2); PLATELET ESTIMATE DECREASED (NORMAL)
[2018-04-18 08:17] LABS: ANISOCYTOSIS 2+; HYPOCHROMIA 3+
[2018-04-18 08:18] LABS: STOMATOCYTE 1+
[2018-04-18 08:19] LABS: TEAR DROP CELLS 1+
[2018-04-19] VITALS (9 sets, daily range): BP systolic 95–138; BP diastolic 53–68; PULSE 77–112; TEMP 97.9–100.2
[2018-04-19 06:23] LABS: MEAN CELL VOLUME 105 fl (80.0-100.0); MEAN CORPUSCULAR HGB CONC 30 g/dl (33.0-37.0); MEAN PLATELET VOLUME 12.3 fl (7.4-10.4); PLATELET COUNT 92 K/mm3 (130-400); RED BLOOD COUNT 2.61 M/mm3 (4.20-5.60); REDCELL DISTRIBUTION WIDTH-CV 21.6 % (11.5-14.5)
[2018-04-19 06:26] LABS: HEMATOCRIT 27.3 % (42.0-52.0); HEMOGLOBIN 8.3 g/dl (13.5-18.0); MEAN CORPUSCULAR HEMOGLOBIN 32 pg (27.0-31.0)
[2018-04-19 06:39] LABS: CREATININE, serum 0.39 mg/dL (0.66-1.25); POTASSIUM 3.9 mmol/L (3.4-5.0)
[2018-04-19 06:43] LABS: CALCIUM 5.2 mg/dL (8.4-10.2)
[2018-04-19 07:56] LABS: BAND 16 % (0-10); EOSINOPHIL 3 % (0-4); LYMPHOCYTE 15 % (20.0-51.0); NEUTROPHILS 58 % (42.0-75.2)
[2018-04-19 07:57] LABS: ANISOCYTOSIS 1+; PLATELET ESTIMATE DECREASED (NORMAL)
[2018-04-20] VITALS (9 sets, daily range): BP systolic 92–100; BP diastolic 44–68; PULSE 101–110; TEMP 97.9–99.7
[2018-04-20 07:49] LABS: HEMATOCRIT 28.6 % (42.0-52.0); MEAN CELL VOLUME 102 fl (80.0-100.0); MEAN CORPUSCULAR HEMOGLOBIN 32 pg (27.0-31.0); MEAN CORPUSCULAR HGB CONC 32 g/dl (33.0-37.0); MEAN PLATELET VOLUME 11.8 fl (7.4-10.4); PLATELET COUNT 116 K/mm3 (130-400); REDCELL DISTRIBUTION WIDTH-CV 21.2 % (11.5-14.5)
[2018-04-20 07:57] LABS: CALCIUM 6.2 mg/dL (8.4-10.2); CREATININE, serum 0.34 mg/dL (0.66-1.25); POTASSIUM 4.2 mmol/L (3.4-5.0)
[2018-04-20] MEDS ORDERED: CEFAZOLIN SODI100 ML IV (13:44)
[2018-04-20] MEDS ORDERED: FOLIC ACID 11 MG/TA1 PO (13:45)
[2018-04-20 17:29] LABS: PTH,INTACT 468.3 pg/mL (6.6-88.9)
== END 2018-04-20 16:05 | DRG 871 ==
LOC: COL.ER 16:54 → ICU 20:40 → MEDICAL 04-13 17:26
PROVIDERS: Anesthesiology Critical Care Medicine; Emergency Medicine; Family Medicine; Internal Medicine; Internal Medicine Infectious Disease; Internal Medicine Pulmonary Disease; Nurse Practitioner Family; Physician Assistant
PROC: 0W993ZZ Drainage of Right Pleural Cavity, Percutaneous Approach (ICD-10-PCS; 2018-04-13)
PROC: 0W9B3ZZ Drainage of Left Pleural Cavity, Percutaneous Approach (ICD-10-PCS; 2018-04-14)
PROC: 0W993ZZ Drainage of Right Pleural Cavity, Percutaneous Approach (ICD-10-PCS; 2018-04-19)
PROC: 0W9B3ZZ Drainage of Left Pleural Cavity, Percutaneous Approach (ICD-10-PCS; principal; 2018-04-20)
DX: A41.01 Sepsis due to Methicillin susceptible Staphylococcus aureus (principal); J96.01 Acute respiratory failure with hypoxia; J18.9 Pneumonia, unspecified organism; I33.0 Acute and subacute infective endocarditis; I21.A1 Myocardial infarction type 2; R65.21 Severe sepsis with septic shock; K81.0 Acute cholecystitis; C79.51 Secondary malignant neoplasm of bone; J90 Pleural effusion, not elsewhere classified; E44.0 Moderate protein-calorie malnutrition; E87.2 Acidosis; N17.9 Acute kidney failure, unspecified; E87.1 Hypo-osmolality and hyponatremia; Z68.1 Body mass index [BMI] 19.9 or less, adult; Z66 Do not resuscitate; C61 Malignant neoplasm of prostate; E83.51 Hypocalcemia; E83.42 Hypomagnesemia; R19.7 Diarrhea, unspecified; D63.0 Anemia in neoplastic disease; D69.6 Thrombocytopenia, unspecified; E16.2 Hypoglycemia, unspecified; Z85.01 Personal history of malignant neoplasm of esophagus
CPT/HCPCS: 99223-AI; 99232-AI; 99233-AI; 99239; A9284; C1751; G9654; J0610; J0690; J1720; J1940; J2270; J2405; J2543; J3010; J3370; J3475; J7030; J7040; J7042; J7050; J7070; P9016; P9047

== ENCOUNTER → 2018-05-01 | Outpatient (CLI) | payer MEDICARE, BC ==
[~2018-05-01] VITALS: Ht 182.9 cm; Wt 70.7 kg
[~2018-05-01] MED LIST changes: +CEFAZOLIN SODI100 ML IV; +DECADRON 4MG TAB4 MG PO; +FOLIC ACID 11 MG/TA1 PO; +GLUCOSAMINE 1000 PO; +LASIX 20MG TABL20 MG PO; +PREDNISONE20 MG PO
[2018-05-01 13:53] VITALS: BP 96/74; PULSE 104
[2018-05-01 15:05] VITALS: BP 105/70; PULSE 105
== END ==
LOC: COL.RAD 13:19 → EDSTATUS 13:20
DX: C61 Malignant neoplasm of prostate (principal); C79.51 Secondary malignant neoplasm of bone; J90 Pleural effusion, not elsewhere classified; I33.0 Acute and subacute infective endocarditis; Z92.89 Personal history of other medical treatment

== ENCOUNTER → 2018-05-04 | Outpatient (CLI) | payer MEDICARE, BC ==
[2018-05-04 10:17] VITALS: BP 99/68; PULSE 104
[2018-05-04 11:22] VITALS: BP 101/72
== END ==
LOC: COL.RAD 09:45
DX: C61 Malignant neoplasm of prostate (principal); C79.51 Secondary malignant neoplasm of bone; J90 Pleural effusion, not elsewhere classified; Z90.49 Acquired absence of other specified parts of digestive tract; Z98.890 Other specified postprocedural states
CPT/HCPCS: 19804